=== PATIENT | male | born 1955 | race Caucasian/White ===

== ENCOUNTER 2017-08-17 13:09 | Inpatient (IN) | payer OTHER ==
[~2017-08-17] VITALS: Ht 180.3 cm; Wt 84.1 kg
[2017-08-17 13:56] LABS: ABSOLUTE BASOPHIL COUNT 0 /CUMM (0.0-0.2); ABSOLUTE EOSINOPHIL COUNT 0 /CUMM (0.0-0.7); ABSOLUTE GRANULOCYTE CT 5.9 /CUMM (1.4-6.5); ABSOLUTE LYMPH COUNT 1.2 /CUMM (1.2-3.4); ABSOLUTE MONOCYTE COUNT 0.5 /CUMM (0.10-0.60); BASOPHIL % 0.5 % (0.0-2.0); EOSINOPHIL % 0.1 % (0-5); GRANULOCYTE % 77.4 % (42.2-75.2); HEMATOCRIT 42.3 % (42-52); MEAN CORPUSCULAR HGB 34.5 PG (27.0-31.0); MEAN CORPUSCULAR HGB CONC 36.3 G/DL (33.0-37.0); MEAN CORPUSCULAR VOLUME 95.2 FL (80.0-94.0); MEAN PLATELET VOLUME 6.6 FL (7.4-10.4); PLATELET COUNT 312 /CUMM (130-400); RBC DISTRIBUTION WIDTH 15.7 % (11.5-14.5); RED BLOOD CELL CT 4.44 /CUMM (4.70-6.10); WHITE BLOOD CELL COUNT 7.7 /CUMM (4.8-10.8)
--- NOTE | 2017-08-17 13:56 | ED GENERAL ADULT ---
History of Present Illness General Chief Complaint: ETOH/Drug Related Complaint Stated Complaint: ETOH, NEEDS DETOX FOR [facility] ADMISSION Source: patient Exam Limitations: no limitations Vital Signs & Intake/Output Vital Signs & Intake/Output Vital Signs Date Time Temp Pulse Resp B/P B/P Pulse O2 O2 Flow FiO2 Mean Ox Delivery Rate 08/18 2307 98.3 114 21 160/80 95 Room Air 08/17 2212 98.8 105 18 157/83 99 Room Air 08/17 2009 98.8 122 20 153/78 08/17 2008 98.8 122 20 153/78 96 Room Air 08/17 1632 99.1 108 18 137/72 96 Room Air 08/17 1318 99.0 130 22 111/77 97 Allergies Coded Allergies: No Known Allergies (08/17/17) Reconcile Medications Atorvastatin Calcium (Lipitor) (Unknown Strength) TABLET (Unknown Dose) PO DAILY CHOLESTEROL (Reported) Escitalopram Oxalate (Lexapro) 10 MG TABLET 1 TAB PO DAILY MENTAL HEALTH ( Reported) Triage Note: PER PT LAST DRINK YESTERDAY WENT TO [facility] AND BAL WAS 2.4 SENT HERE WITH FRIEND FOR DETOX PER PT NO SZ HX BUT FRIEND SAID PT HAD A SZ YESTERDAY Triage Nurses Notes Reviewed? yes Onset: Abrupt Duration: week(s): (6 MONTHS) Timing: single episode today Injury Environment: home Severity: moderate, severe No Modifying Factors: none HPI: 61-year-old male past medical history of hyperlipidemia and alcohol dependence presents for evaluation requesting alcohol detox/clearance for [facility]. Patient states that he has been drinking heavily for years however of the past 6 months that has become daily. He states he drinks 3 or 4 "cups" of vodka daily. He is cups contain about 4 shots. He denies any drug use. He is not suicidal or homicidal. No history of alcohol withdrawal seizures however according to the patient's friend he had a seizure yesterday. Patient denies this. He denies any visual or auditory hallucinations. His last drink was around 12:00 today. He drank "a large cup of vodka". He states that he went to [facility] but was referred here because he was still intoxicated. He does report currently feeling nauseous and has a headache. (Kendrick Art) Past History Travel History Traveled to [place] past 21 day No Medical History Any Pertinent Medical History? see below for history Neurological: NONE EENT: NONE Cardiovascular: CHOL Respiratory: NONE Gastrointestinal: NONE Hepatic: NONE Renal: NONE Musculoskeletal: NONE Psychiatric: NONE Endocrine: NONE Surgical History Surgical History: non-contributory Psychosocial History What is your primary language Palauan Tobacco Use: Never used ETOH Use: heavy use Family History Hx Contributory? No (Kendrick Art) Review of Systems Review of Systems Constitutional: Reports: no symptoms. EENTM: Reports: no symptoms. Respiratory: Reports: no symptoms. Cardiovascular: Reports: no symptoms. GI: Reports: nausea. Genitourinary: Reports: no symptoms. Musculoskeletal: Reports: no symptoms. Skin: Reports: no symptoms. Neurological/Psychological: Reports: headache. Hematologic/Endocrine: Reports: no symptoms. Immunologic/Allergic: Reports: no symptoms. All Other Systems: Reviewed and Negative (Kendrick Art) Physical Exam Physical Exam General Appearance: well developed/nourished, no apparent distress, alert, awake Head: atraumatic, normal appearance Eyes: Bilateral: normal appearance, PERRL, EOMI. Ears, Nose, Throat: normal pharynx, normal ENT inspection, hearing grossly normal Neck: normal inspection, supple, full range of motion Respiratory: normal breath sounds, chest non-tender, no respiratory distress, lungs clear Cardiovascular: regular rate/rhythm, normal peripheral pulses Peripheral Pulses: 2+ radial (R), 2+ radial (L) Gastrointestinal: normal bowel sounds, soft, non-tender, no organomegaly Back: normal inspection, normal range of motion, no vertebral tenderness Extremities: normal inspection, normal range of motion, no edema Neurologic/Psych: no motor/sensory deficits, awake, alert, oriented x 3, normal gait Skin: intact, normal color, warm/dry Lymphatic: no anterior cervical tank Core Measures ACS in differential dx? No CVA/TIA Diagnosis: No Sepsis Present: No Sepsis Focused Exam Completed? No (Kendrick Art) Progress Differential Diagnoses I considered the following diagnoses in my evaluation of the patient: [Alcohol intoxication, alcohol withdrawal, electrolyte ABN] Plan of Care: Orders Procedure Date/time Status Regular Diet 08/18 B Active Pathway - chart 08/17 2212 Active House Staff 08/17 2212 Active Patient Data 08/17 2212 Active Code Status 08/17 2212 Active ED Holding Orders 08/17 2150 Active Admit to inpatient 04/30 2151 Active Vital Signs 04/30 2151 Active Code Status 08/17 2151 Complete CIWA 08/17 1752 Active Intake & Output 08/17 1411 Active Add-on Test (ER Only) 08/17 1355 Active TROPONIN LEVEL 08/17 1326 Complete MAGNESIUM 08/17 1326 Complete URINE DRUG SCREEN FOR ER ONLY 08/17 1319 Complete ETHANOL 08/17 1319 Complete COMPREHENSIVE METABOLIC PANEL 08/17 1319 Complete CBC WITHOUT DIFFERENTIAL 08/17 1319 Complete EKG 08/17 1319 Active VTE Mechanical Prophylaxis 08/17 UNK Active Current Medications Sig/Breana Start time Last Medication Dose Stop Time Status Admin Atorvastatin Calcium 40 MG 1700 08/18 1700 AC (Lipitor) Enoxaparin Sodium 40 MG DAILY 08/18 0900 AC (Lovenox) Escitalopram Oxalate 10 MG DAILY 08/18 09 AC (Lexapro) Cyanocobalamin/ 1 BAG ONCE ONE 08/17 2230 AC Thiamine/Pyridoxine 08/18 0629 (Vitamin in I.V.) Sodium Chloride 1,000 ML (Normal Saline 0.9%) Acetaminophen 325 MG Q6 PRN 08/17 2215 AC (Tylenol) Laboratory Tests 08/17/17 1502: Anion Gap 19 H, Estimated GFR > 60, BUN/Creatinine Ratio 27.0 H, Glucose 226 H, Calcium 8.7, Magnesium 1.9, Total Bilirubin 0.4, AST 43, ALT 38, Alkaline Phosphatase 62, Troponin I < 0.01, Total Protein 6.5, Albumin 4.1, Globulin 2.4, Albumin/Globulin Ratio 1.7, Serum Alcohol 227.0 08/17/17 1433: Urine Opiates Screen < 100, Methadone Screen 46, Barbiturate Screen < 60, Ur Phencyclidine Scrn < 6.00, Amphetamines Screen < 100, U Benzodiazepines Scrn 357 H, Urine Cocaine Screen < 50, Urine Cannabis Screen < 5.00 08/17/17 1326: CBC w Diff NO MAN DIFF REQ, RBC 4.44 L, MCV 95.2 H, MCH 34.5 H, MCHC 36.3, RDW 15.7 H, MPV 6.6 L, Gran % 77.4 H, Lymphocytes % 15.6 L, Monocytes % 6.4, Eosinophils % 0.1, Basophils % 0.5, Absolute Granulocytes 5.9, Absolute Lymphocytes 1.2, Absolute Monocytes 0.5, Absolute Eosinophils 0, Absolute Basophils 0 Patient seen and evaluated. He is here requesting evaluation of alcohol detox. Patient denies history of ocular withdrawal seizures however his friend reports he may have had a seizure yesterday. He is not suicidal or homicidal. We'll check basic labs and CIWA exams. He is tachycardic to the 120s be given a liter normal saline. EKG sinus tach. Blood work shows an alcohol level of greater than 200. Patient to be monitorED. Patient shows a CIWA of 13 on reevaluation after multiple hours in the ER. 2 mg of Ativan IV and 2 mg oral Ativan orderED. Also an additional liter of normal saline ordered. Repeat CIWA is now 16 despite Ativan. Another 2 and 2 ordered. A banana bag ordered. Patient will require admission to the hospital for treatment of alcohol withdrawal. CASE DISCUSSED WITH DR JAMES HE AGREES. Initial ED EKG: SINUS TACHYCARDIA RATE 113, LEFT ATRIAL ABNORMALITY, NONSPECIFIC t-WAVE ABNORMALITIES DIFFUSELY (Kendrick Art) Departure Departure Disposition: STILL A PATIENT Condition: Stable Clinical Impression Primary Impression: Alcohol withdrawal Qualifiers: Complication of substance-induced condition: uncomplicated Qualified Code: F10.230 - Alcohol dependence with withdrawal, uncomplicated Departure Forms: Customer Survey General Discharge Information Admission Note Spoke With: Gil Galarza MDanne marie Documentation of Exam: Documentation of any treatments & extenuating circumstances including Concerns Regarding Discharge (functional status, medication knowledge or non-compliance, living conditions, etc.) that warrant an admission rather than observation: [ CIWA, SERIAL LABS, IV ATIVAN, MONIOTRING OF VITAL SIGNS, CASE MANAGEMENT, ] (Kendrick Art) PA/ENGINEER CHIEF Co-Sign Statement Statement: ED Attending supervision documentation- [X] I saw and evaluated the patient. I have also reviewed all the pertinent lab results and diagnostic results. I agree with the findings and the plan of care as documented in the PA's/ENGINEER CHIEF's documentation. [X] I have reviewed the ED Record and agree with the PA's/ENGINEER CHIEF's documentation. [] Additions or exceptions (if any) to the PAs/ENGINEER CHIEF's note and plan are summarized below: [Patient to score is escalating. Patient is now at high risk to have an alcohol withdrawal seizure. Patient will require clinical admission for benzos. His CIWA score.] (Yecenia MOSLEY,Jasson Simon) Critical Care Note Critical Care Note Critical Care Time: non-applicable (David SMILEY,Kendrick)
[2017-08-17] MEDS ORDERED: LEXAPRO10 M1 PO (14:43)
[2017-08-17] MEDS ORDERED: LIPITOR10 M1 PO (14:43)
[2017-08-17 20:10] VITALS: BP 153/78
--- NOTE | 2017-08-17 22:07 | History & Physical ---
Susan Leung 08/17/17 9006: General Information and HPI MD Statement: I have seen and personally examined ANJANA KAUFFMAN and documented this H&P. The patient is a 61 year old M who presented with a patient stated chief complaint of [Alcohol Detox]. Source of Information: patient, old records Exam Limitations: no limitations History of Present Illness: Mr. Kauffman is a 61-yo M w/ PMH of HLD, childhood asthma, hypertension, possible psych issues, active alcohol user of 3-4 cups (4oz cup) alcohol daily prior to this admission, presented to the ER for alcohol detox. Patient has been a chronic alcohol use of around 1 glasses of wine per dinner in the past, without recorded seizure events in the past. She underwent alcohol detox program at [facility] about 2-3 months ago, uncomplicated, and was then sent to rehab for 2-3 weeks. Prior to this admission, patient started drinking for 4 days with 3-4 cups (4 ounces cup) of vodka/alcohol daily without a particular trigger. Patient stated the last ring was on 08/16 around noon time, however his friend claimed that patient had a seizure, unknown of whether before or after the last week. Patient did not have any memory of the seizure event. Patient was trying to sign up for [facility] alcohol detox program today, however was told that he should present to the ER for alcohol detox program. During our clinical interaction, patient endorsed some dull pain at the chest, some epigastric discomfort, and some right lower quadrant abdominal discomfort as well. However patient denied fever/night sweat/weight change/cough/SOB/ Palpitation/exercise intolerance/bowel movement/urinary abnormality, or other skin/musculoskeletal/neurological disorders/mood change/insomnia/dietary/ appetite change. Patient cannot remember all his home medications, however admitted taking medications that we brought up for home medication list, including Lexapro, Lipitor, clonazepam, hypertensive medications (possibly amlodipine), and inhalers. Patient denies any suicidal/homicidal ideations. Patient does not want to see a psychiatrist. -Smoking: Never -Alcohol: as above -Rec Drugs: denied Allergies/Medications Allergies: Coded Allergies: No Known Allergies (08/17/17) Home Med list Atorvastatin Calcium (Lipitor) (Unknown Strength) TABLET (Unknown Dose) PO DAILY CHOLESTEROL (Reported) Escitalopram Oxalate (Lexapro) 10 MG TABLET 1 TAB PO DAILY MENTAL HEALTH ( Reported) Past History Travel History Traveled to [place] past 21 day No Medical History Neurological: NONE EENT: NONE Cardiovascular: hypertension, hyperlipidemia Respiratory: asthma Gastrointestinal: NONE Hepatic: NONE Renal: NONE Musculoskeletal: NONE Psychiatric: alcohol dependence, depression Endocrine: NONE Surgical History Surgical History: non-contributory, Shoulder/knee repair surgeries in the past Past Family/Social History Psychosocial History ETOH Use: heavy use Review of Systems Review of Systems Constitutional: Reports: see HPI. Exam & Diagnostic Data Last 24 Hrs of Vital Signs/I&O Vital Signs Date Time Temp Pulse Resp B/P B/P Pulse O2 O2 Flow FiO2 Mean Ox Delivery Rate 08/17 2009 98.8 122 20 153/78 08/17 2008 98.8 122 20 153/78 96 Room Air 08/17 1632 99.1 108 18 137/72 96 Room Air 08/17 1318 99.0 130 22 111/77 97 Intake & Output 08/17 1600 08/17 0800 08/17 0000 Intake Total 0 Output Total Balance 0 Intake, Oral 0 Physical Exam General Appearance Alert, Oriented X3, Cooperative, No Acute Distress Skin No Rashes, No Breakdown, No Significant Lesion Skin Temp/Moisture Exam: Warm/Dry Sepsis Skin Exam (color): Normal for Ethnicity HEENT Atraumatic, PERRLA Neck Supple, No JVD Cardiovascular Regular Rate Lungs Clear to Auscultation, Normal Air Movement Abdomen Normal Bowel Sounds, Soft, mild dul pain at epigastric/RLQ ab. Patient claimed the pain was from "inside". No rebound tenderness Neurological Normal Speech, BUE tremors on raising and hold hands Extremities No Edema, Normal Pulses Last 24 Hrs of Labs/Rajat: Laboratory Tests 08/17/17 1502: Anion Gap 19 H, Estimated GFR > 60, BUN/Creatinine Ratio 27.0 H, Glucose 226 H, Calcium 8.7, Magnesium 1.9, Total Bilirubin 0.4, AST 43, ALT 38, Alkaline Phosphatase 62, Troponin I < 0.01, Total Protein 6.5, Albumin 4.1, Globulin 2.4, Albumin/Globulin Ratio 1.7, Serum Alcohol 227.0 08/17/17 1433: Urine Opiates Screen < 100, Methadone Screen 46, Barbiturate Screen < 60, Ur Phencyclidine Scrn < 6.00, Amphetamines Screen < 100, U Benzodiazepines Scrn 357 H, Urine Cocaine Screen < 50, Urine Cannabis Screen < 5.00 08/17/17 1326: CBC w Diff NO MAN DIFF REQ, RBC 4.44 L, MCV 95.2 H, MCH 34.5 H, MCHC 36.3, RDW 15.7 H, MPV 6.6 L, Gran % 77.4 H, Lymphocytes % 15.6 L, Monocytes % 6.4, Eosinophils % 0.1, Basophils % 0.5, Absolute Granulocytes 5.9, Absolute Lymphocytes 1.2, Absolute Monocytes 0.5, Absolute Eosinophils 0, Absolute Basophils 0 Assessment/Plan Assessment: Problem list & Assessment: Patient presented with alcohol detox clinical picture, with no deficit on his mental status. Patient may had a questionable alcohol seizures, however based on his serum alcohol level 227, is very unlikely the patient would have withdrawal seizure while being positive also alcohol. However continuous monitoring is necessary. Chest/epigastric and right lower quadrant abdominal discomfort. Patient's complaint, however, only dull pain around 3-4 out of 10 the patient without a remarkable physical examination revealed any acute process. Past medical history been confirmed however unclear of patient's whether he was taking all medications he had at home. #Alcohol detox #questionable hx of alcohol withdrawal seizures #Chest/Epigastric & RLQ discomfort. #Euvolumic Hyponatremia #PMH of hypertension, hyperlipidemia, depression/anxiety, childhood asthma, Hospital Course: - Admit to general medicine floor -Ativan per [facility] protocol. Patient received total of 8 mg of Ativan during ER prior to inpatient admission. -Ativan 2 mg q6 PO. -Multivitamin/B12/Folic/Thiamine pain persists, transfer to telemetry -Ultrasound of abdomen to rule out any acute process. DVT prophylaxis Lovenox + ALPS Regular Diet Full Code As Ranked By This Provider Problem List: 1. Alcohol withdrawal Qualifiers Complication of substance-induced condition: uncomplicated Qualified Code: F10.230 - Alcohol dependence with withdrawal, uncomplicated Core Measures/Misc (01/04) Acute Coronary Syndrome ACS Diagnosis: No Congestive Heart Failure Congestive Heart Failure Diagnosis No Cerebrovascular Accident CVA/TIA Diagnosis: No VTE (View Protocol) VTE Risk Factors Age>40 No Mechanical VTE Prophylaxis d/t N/A MechProphylax Ordered No VTE Pharm Prophylaxis d/t NA PharmProphylax ordered Sepsis (View protocol) Sepsis Present: No Hdaval,Reetup 08/17/17 2213: Resident Review Statement Resident Statement: examined this patient, discussed with advisory internship Other Findings: Patient is a 61-year-old male with past medical history of multiple psychiatric disorders, hyperlipidemia, asthma in childhood, alcohol abuser(last detox 3-4 months ago at [facility]), no history of alcohol withdrawal seizures presents to the ED requesting alcohol detox. Patient reports that he has been drinking consistently for the past 4 days. He has been drinking 3-4 cups(4 ounces). Prior to that he was sober post his detox at [facility] about 4 months ago. After that the patient was discharged to rehabilitation where he did not drink. He hints to financial crisis, divorce being trigger. His last drink was yesterday around noon. Patient's friend also mentioned him having a seizure episode yesterday however the patient cannot recall the exact details of the episode. He wanted to sign up for a [facility] today for alcohol detox, however was sent to ED. He denies any nausea, vomiting, fevers, chills, diarrhea or constipation. Admits to nonspecific chest discomfort on the left side without radiation, some right lower quadrant pain but no other symptoms. Patient also has multiple psych issues and sees a psychiatrist. He denies to see a psychiatrist while in the hospital. He is on Lexapro and Klonopin. Denies SI/HI Vital sitter at admission was significant was a tachycardia of 1:30, and respiration of 22. Labs significant for sodium 128,(no baseline), anion gap 19, glucose 226, troponins 0.01, U tox positive for benzodiazepines EKG significant for sinus tachycardia, T-wave inversion in V4 to V6, Physical exam: General: Awake, alert, oriented times place and person HEENT: PERRLA, EOMI Chest: Clear breath sounds CVS: S1 and S2 heard, no murmurs Abdomen: Distended, hard, right lower quadrant tenderness, bowel sounds positive Extremities: No edema, pulses intact Neurological: Mild tremor, no neurological deficits Assessment Alcohol detox ? Alcohol withdrawal seizures Nonspecific chest pain, T-wave inversions V4 to V6 Right lower quadrant discomfort Pseudohyponatremia likely secondary to hyperglycemia( corrected Na 131) Hyperglycemia Hypertension, hyperlipidemia Depression/anxiety Asthma Plan * Admit to [facility] * Vitals per protocol * Seizure precautions * Aspiration precautions * CIWA protocol * Scheduled Ativan 2 mg every 6, Ativan per CIWA * Gentle hydration with IV normal saline * Continue thiamine, folate, multivitamins * Check BeP in a.m. monitor sodium. Hyponatremia likely due to hyperglycemia, corrected 131 * We'll check 1 more set of troponin and EKG, previous troponin negative. If patient develops chest pain, we will consider transferring to telemetry. * Abdominal ultrasound to rule out acute pathology * Will check Amylase and Lipase to r/o pancreatitis * TID Accuchecks, Novolog SSC, check HbA1c * Continue Lexapro and all other home medications * Patient denies to see a psychiatrist at this time * aircraft worker consult * DVT prophylaxis subcutaneous Lovenox * Full code Geovanni MOSLEY, [facility] 08/18/17 0218: Attending MD Review Statement Attending Statement Attending MD Statement: examined this patient, discuss w/resident/PA/PICK UP AND DELIVERY DRIVER, agreed w/resident/PA/PICK UP AND DELIVERY DRIVER, reviewed images, amended to note Attending Assessment/Plan: 61 yo M smoker with h/o alcohol dependence, HTN, ?anxiety/ depression, presented to the ER today for alcohol detox and clearance for [facility]. He has been drinking heavily since he was a teenager. His last detox was at [facility] 4 months ago followed by rehabilitation for 10 days, and he claims to be sober since. He reports binge drinking only for the past 4 days. However, according to ER notes, he had reported that he has been drinking daily for the past 6 months. Denies SI or HI. No IV drug use. He denies alcohol withdrawal seizures however patient's friend reported to ER physician that patient had a seizure yesterday. He c/o left sided sharp chest discomfort (under the left breast) and right sided abdominal pain. Reports occasional heartburn. Denies nausea, vomiting, hematemesis or melena. Vitals stable except for tachycardia. Exam as above. Labs: Na 128, AG 19, BUN 27 , glucose 226, troponin neg. Urine tox positive for benzos. Alcohol 227. EKG: sinus tachycardia with T-wave flattening and inversions in V2-6 and inferior leads (no old EKG). Assessment and plan: 1. Alcohol withdrawal, ?withdrawal seizures 2. EKG abnormalities with atypical chest discomfort 3. Pseudohyponatremia (corrected to glucose 131) 4. Essential hypertension 5. Anxiety, depression 6. Smoker 7. Hyperglycemia - Admit to general medicine - Fall and seizure precautions - CIWA protocol - IV ativan per CIWA and scheduled ativan - Banana bag, then thiamine, folic acid and mvi - Serial EKG and troponin - Right upper quadrant pain, with normal LFTs will check lipase, amylase and obtain RUQ ultrasound - Social work consult - Continue lexparo, patient wishes to follow up with outpatient psychiatrist - Resume amlodipine, hold edarbyclor for now - Smoking cessation counseling, nicotine patch - Accucheks, check HbA1c. Add novolog SS if sugars >200. DVT ppx lovenox. Full code.
--- NOTE | 2017-08-17 22:12 | Admission Certification ---
Admission Certification Certification Statement - As attending physician, I certify that at the time of - admission, based on clinical presentation, severity of - symptoms, need for further diagnostic testing and - therapeutic interventions, and risk of adverse outcomes - without in-hospital treatment, in my clinical assessment, - this patient requires an acute hospital stay for a minimum - of two nights or longer. I have also considered psychsocial - factors such as support system, advanced age, financial - issues, cognitive issues, and failed out-patient treatments, - past re-admission history, safety of patient, and lack of - compliance as applicable. Specific rationale supporting this admission is: Alcohol withdrawal
[2017-08-17 23:08] VITALS: BP 160/80
[2017-08-18] VITALS (10 sets, daily range): BP systolic 122–154; BP diastolic 70–98
--- NOTE | 2017-08-18 07:46 | PN- Housestaff ---
See Addendum Subjective Follow-up For: EtOH Subjective: No overnight events. Patient presents requesting detox from alcohol. Patient says he has been drinking since a teenager but is only become a problem in the past year. He was 4 years ago and he thinks this may have something to do with it. He says he does not remember much but thinks that he was drinking about a gallon but may be less of vodka a day. He also mentions that he thinks he had a seizure 2 days ago but is not sure. He has never had withdrawal seizures in the past. He has never been hospitalized for alcohol withdrawal either. This morning, he endorses nausea, headache, tremulousness, and anxiety. He has no chest pain or shortness of breath. He has no abdominal pain. Review of Systems Constitutional: Reports: see HPI. EENTM: Reports: no symptoms. Cardiovascular: Reports: no symptoms. Respiratory: Reports: no symptoms. Gastrointestinal: Reports: see HPI. Genitourinary: Reports: no symptoms. Musculoskeletal: Reports: no symptoms. Skin: Reports: no symptoms. Neurological/Psychological: Reports: see HPI. Hematologic/Endocrine: Reports: no symptoms. Immunologic/Allergic: Reports: no symptoms. Objective Last 24 Hrs of Vital Signs/I&O Vital Signs Date Time Temp Pulse Resp B/P B/P Pulse O2 O2 Flow FiO2 Mean Ox Delivery Rate 08/18 0653 98.7 85 18 152/84 95 Room Air 08/18 0321 98.5 98 20 152/82 97 Room Air 08/18 0118 98.6 100 20 154/78 94 Room Air 08/17 2308 98.3 114 21 160/80 95 Room Air 08/17 2212 98.8 105 18 157/83 99 Room Air 08/17 2009 98.8 122 20 153/78 08/17 2008 98.8 122 20 153/78 96 Room Air 08/17 1632 99.1 108 18 137/72 96 Room Air 08/17 1318 99.0 130 22 111/77 97 Intake & Output 08/18 0800 08/18 0000 08/17 1600 Intake Total 0 Output Total 1150 Balance -1150 0 Intake, Oral 0 Output, Urine 1150 Patient 81.647 kg Weight Weight Bed scale Measurement Method Physical Exam General Appearance: Alert, Oriented X3, Cooperative, No Acute Distress Cardiovascular: Regular Rate, Normal S1, Normal S2 Lungs: Clear to Auscultation Abdomen: Normal Bowel Sounds, Soft, No Tenderness Extremities: No Edema, Normal Pulses, No Tenderness/Swelling Current Medications: Current Medications Sig/Breana Start time Last Medication Dose Route Stop Time Status Admin Acetaminophen 325 MG Q6 PRN 08/17 2215 AC PO Acetaminophen 0 .STK-MED ONE 08/17 1812 DC PO Acetaminophen 975 MG ONCE ONE 08/17 1800 DC 08/17 PO 08/17 1801 1806 Amlodipine Besylate 5 MG DAILY 08/18 09 AC PO Atorvastatin Calcium 40 MG 1700 08/18 1700 CAN PO Cyanocobalamin/ 1 BAG DAILY 08/18 09 AC Thiamine/Pyridoxine IV 08/18 1659 Dextrose/Water 1,000 ML Cyanocobalamin/ 1 BAG ONCE ONE 08/17 2230 DC 08/17 Thiamine/Pyridoxine IV 08/18 0629 2314 Sodium Chloride 1,000 ML Enoxaparin Sodium 40 MG DAILY 08/18 09 AC SC Escitalopram Oxalate 10 MG DAILY 08/18 09 AC PO Folic Acid 1 MG DAILY 08/18 0900 AC PO Insulin Aspart 0 TIDAC 08/18 0800 AC SC Lorazepam 1 MG Q1 PRN 08/18 0315 AC IV Lorazepam 2 MG Q6 08/17 2359 AC 08/18 PO 0614 Lorazepam 1 MG Q1 NEEDED PRN 08/17 2345 DC IV Lorazepam 0 .STK-MED ONE 08/17 221 DC PO Lorazepam 0 .STK-MED ONE 08/17 221 DC .ROUTE Lorazepam 2 MG ONE ONE 08/17 2145 DC 08/17 IV 08/17 2145 221 Lorazepam 2 MG ONCE ONE 08/17 2145 DC 08/17 PO 08/17 214 2211 Lorazepam 0 .STK-MED ONE 08/17 2022 DC PO Lorazepam 0 .STK-MED ONE 08/17 2022 DC .ROUTE Lorazepam 2 MG ONE ONE 08/17 2014 DC 08/17 IV 08/17 Lorazepam 2 MG ONCE ONE 08/17 2014 DC 08/17 PO 08/17 Multivitamins 1 TAB DAILY 08/18 09 AC PO Ondansetron HCl 0 .STK-MED ONE 08/17 1752 DC .ROUTE Ondansetron HCl 4 MG ONCE ONE 08/17 1745 DC 08/17 IV 08/17 1746 1746 Sodium Chloride 1,000 ML Q13H 08/17 2345 AC 08/18 IV 08/18 1244 0005 Sodium Chloride 1,000 ML BOLUS ONE 08/17 2014 DC 08/17 IV 08/17 Sodium Chloride 1,000 ML BOLUS ONE 08/17 1400 DC 08/17 IV 08/17 1459 1420 Thiamine HCl 100 MG DAILY 08/18 0900 AC PO Trimethobenzamide HCl 200 MG 4 TIMES/DAY PRN 08/17 2345 AC IM Last 24 Hrs of Lab/Rajat Results Last 24 Hrs of Labs/Mics: Laboratory Tests 08/18/17 0040: Troponin I < 0.01 08/17/17 1502: Anion Gap 19 H, Estimated GFR > 60, BUN/Creatinine Ratio 27.0 H, Glucose 226 H, Hemoglobin A1c Pending, Serum Osmolality 336 H, Calcium 8.7, Magnesium 1.9, Total Bilirubin 0.4, AST 43, ALT 38, Alkaline Phosphatase 62, Troponin I < 0.01, Total Protein 6.5, Albumin 4.1, Globulin 2.4, Albumin/Globulin Ratio 1.7, Amylase 62, Lipase 122, Serum Alcohol 227.0 08/17/17 1433: Urine Opiates Screen < 100, Methadone Screen 46, Barbiturate Screen < 60, Ur Phencyclidine Scrn < 6.00, Amphetamines Screen < 100, U Benzodiazepines Scrn 357 H, Urine Cocaine Screen < 50, Urine Cannabis Screen < 5.00, Urine Osmolality 540 08/17/17 1326: CBC w Diff NO MAN DIFF REQ, RBC 4.44 L, MCV 95.2 H, MCH 34.5 H, MCHC 36.3, RDW 15.7 H, MPV 6.6 L, Gran % 77.4 H, Lymphocytes % 15.6 L, Monocytes % 6.4, Eosinophils % 0.1, Basophils % 0.5, Absolute Granulocytes 5.9, Absolute Lymphocytes 1.2, Absolute Monocytes 0.5, Absolute Eosinophils 0, Absolute Basophils 0 Assessment/Plan Assessment: Mr. Kauffman is a 61-year-old male with past medical history of depression, anxiety, hyperlipidemia, asthma in childhood, alcohol abuse (last detox 3-4 months ago at [facility]), and no history of alcohol withdrawal seizures who presented requesting alcohol detox. Problem List: 1. Alcohol detoxification 2. Pseudohyponatremia #EtOH detox: Patient presented requesting detox. He has never been hospitalized previously for detoxification. He has also never had a withdrawal seizure. His CIWA score overnight ranged from 0-16. His LFTs are normal and he no longer has any abdominal pain. -Lorazepam 2 mg every 6 hours -Lorazepam 1 mg every 1 hour as needed CIWA protocol -Seizure precautions -Social work consult -Alcoholic vitamins -Follow-up abdominal ultrasound #Pseudohyponatremia: Patient presented with sodium 128, corrected sodium 131. -Continue to monitor #Chronic medical problems: -Continue other home medications DVT prophylaxis with enoxaparin Consistent carbohydrate to diet Full code Problem List: 1. Alcohol withdrawal Pain Ratin Pain Location: no Pain Goal: Remain pain free Pain Plan: see a/p Tomorrow's Labs & Rationales: bep
--- NOTE | 2017-08-18 08:44 | ULTRASOUND REPORT ---
EXAMINATION: US ABDOMEN COMPLETE CLINICAL INFORMATION: 61-year-old male patient with upper abdominal pain for 2 days. COMPARISON: None TECHNIQUE: Real-time imaging of the abdominal viscera. FINDINGS: PANCREAS: Pancreatic gland is visualized and is not overly enlarged. However, the internal echotexture is heterogeneous implying some form of subacute or chronic disease. ABDOMINAL AORTA: Normal. INFERIOR VENA CAVA: Visualized portions are normal. LIVER: The entire liver is difficult to include on the images submitted due to its high position in the right upper quadrant. The liver demonstrates normal size, contour and echogenicity. No focal lesion or intrahepatic biliary duct dilatation. GALLBLADDER: Normal. The gallbladder is physiologically distended without evidence of stones, sludge, polyps, wall thickening or pericholecystic fluid. COMMON BILE DUCT: There is mild dilatation of the common bile duct varying in size from 0.9 cm with gradual tapering to 0.7 cm in the head of the pancreas. No visualized stones. No obvious mass lesion. RIGHT KIDNEY: Normal. No hydronephrosis. No renal calculi or focal parenchymal lesions. The kidney measures 11.9 cm in maximum dimension. LEFT KIDNEY: Normal. No hydronephrosis. No renal calculi or focal parenchymal lesions. The kidney measures 11.7 cm in maximum dimension. SPLEEN: Normal. The spleen measures 13.6 cm in maximum dimension. FREE FLUID: None. IMPRESSION: 1. Pancreatic gland is heterogeneous implying some form of chronic disease. 2. Mild dilatation of the common bile duct which tapers gradually through the head of the pancreas. 3. No sign of gallbladder disease.
[2017-08-19] VITALS (10 sets, daily range): BP systolic 130–142; BP diastolic 74–95
--- NOTE | 2017-08-19 07:33 | PN- Housestaff ---
See Addendum Subjective Follow-up For: EtOH Subjective: No overnight events. Patient slept well and feels like he is improving. He notes that he did not know how bad he was is glad that he came in. He is worried about the cost of going to rehabilitation and says that he has had many large bills recently. He does not know if he could afford it. He does go to AA meetings that he enjoys and thinks that they help. He did speak to our social work case manager, Greta, yesterday. He denies any headache, nausea, vomiting, chest pain, shortness of breath. His last bowel movement was yesterday. Review of Systems Constitutional: Reports: no symptoms. EENTM: Reports: no symptoms. Cardiovascular: Reports: no symptoms. Respiratory: Reports: no symptoms. Gastrointestinal: Reports: no symptoms. Genitourinary: Reports: no symptoms. Musculoskeletal: Reports: no symptoms. Skin: Reports: no symptoms. Neurological/Psychological: Reports: no symptoms. Hematologic/Endocrine: Reports: no symptoms. Immunologic/Allergic: Reports: no symptoms. Objective Last 24 Hrs of Vital Signs/I&O Vital Signs Date Time Temp Pulse Resp B/P B/P Pulse O2 O2 Flow FiO2 Mean Ox Delivery Rate 08/19 0620 97.8 86 20 142/86 08/19 0600 97.8 86 20 142/86 96 Room Air 08/19 0200 98.1 72 20 138/74 97 Room Air 08/19 0000 96 Room Air 08/18 2232 98.8 83 20 128/70 96 08/18 1800 98.2 89 18 122/80 97 Room Air 08/18 1434 97.9 122 22 153/98 96 Room Air 08/18 1400 97.9 122 22 153/98 08/18 1159 98.3 109 20 150/82 08/18 1052 98.3 88 18 152/86 96 Room Air 08/18 0901 95 150/90 08/18 0852 98.4 95 20 150/90 97 Room Air Intake & Output 08/19 0800 08/19 0000 08/18 1600 Intake Total 250 1100 Output Total 550 950 Balance -300 150 Intake, IV 10 500 Intake, Oral 240 600 Output, Urine 550 950 Physical Exam General Appearance: Alert, Oriented X3, Cooperative, No Acute Distress Cardiovascular: Regular Rate, Normal S1, Normal S2 Lungs: Clear to Auscultation, Normal Air Movement Abdomen: Normal Bowel Sounds, Soft, No Tenderness Extremities: No Edema, Normal Pulses, No Tenderness/Swelling Current Medications: Current Medications Sig/Breana Start time Last Medication Dose Route Stop Time Status Admin Acetaminophen 325 MG .STK-MED ONE 08/18 09 DC PO 08/18 0901 Acetaminophen 325 MG Q6 PRN 08/17 2215 AC 08/19 PO 0328 Amlodipine Besylate 5 MG DAILY 08/18 09 AC 08/18 PO 0901 Cyanocobalamin/ 1 BAG DAILY 08/18 09 DC Thiamine/Pyridoxine IV 08/18 1659 Dextrose/Water 1,000 ML Enoxaparin Sodium 40 MG DAILY 08/18 899 AC 08/18 SC 0902 Escitalopram Oxalate 10 MG DAILY 08/18 09 AC 08/18 PO 0849 Folic Acid 1 MG DAILY 08/18 09 AC 08/18 PO 0849 Insulin Aspart 0 TIDAC 08/18 0800 AC 08/18 SC 1207 Lorazepam 1 MG Q6 08/19 1200 AC PO Lorazepam 1.5 MG Q6 08/18 1800 DC 08/19 PO 0614 Lorazepam 1 MG Q1 PRN 08/18 0315 AC 08/18 IV 1455 Lorazepam 2 MG Q6 08/17 2359 DC 08/18 PO 1200 Multivitamins 1 TAB DAILY 08/18 09 AC 08/18 PO 0849 Potassium Chloride 40 MEQ ONCE ONE 08/18 0945 DC 08/18 PO 08/18 0946 1111 Sodium Chloride 1,000 ML Q13H 08/17 2345 DC 08/18 IV 08/18 1244 0005 Thiamine HCl 100 MG DAILY 08/18 09 AC 08/18 PO 0849 Trimethobenzamide HCl 200 MG 4 TIMES/DAY PRN 08/17 2345 AC IM Last 24 Hrs of Lab/Rajat Results Last 24 Hrs of Labs/Mics: Laboratory Tests 08/19/17 0640: Sodium Pending, Potassium Pending, Chloride Pending, Carbon Dioxide Pending, Anion Gap Pending, BUN Pending, Creatinine Pending, BUN/Creatinine Ratio Pending Assessment/Plan Assessment: Mr. Kauffman is a 61-year-old male with past medical history of depression, anxiety, hyperlipidemia, asthma in childhood, alcohol abuse (last detox 3-4 months ago at [facility]), and no history of alcohol withdrawal seizures who presented requesting alcohol detox. Problem List: 1. Alcohol detoxification 2. Pseudohyponatremia #EtOH detox: Patient presented requesting detox. He has never been hospitalized previously for detoxification. He has also never had a withdrawal seizure. His CIWA score overnight ranged from 0-10. His LFTs are normal and he no longer has any abdominal pain. Abdominal ultrasound was normal. -Lorazepam 1 mg every 6 hours -Lorazepam 1 mg every 1 hour as needed CIWA protocol -Seizure precautions -Social work consult -Alcoholic vitamins #Pseudohyponatremia: Patient presented with sodium 128, corrected to 131. -Continue to monitor #Chronic medical problems: -Continue other home medications DVT prophylaxis with enoxaparin Regular diet Full code Problem List: 1. Alcohol withdrawal Pain Ratin Pain Location: npo Pain Goal: Remain pain free Pain Plan: see a/p Tomorrow's Labs & Rationales: no
--- NOTE | 2017-08-19 18:30 | Cons- Psychiatry ---
Psychiatric Consult Date of Consult: 08/19/17 Reason for Consult: "Depression, on escitalopram, hyponatremia" History of Present Illness: This is a 17-year-old, , domiciled, male, presenting to the ED on 08/17/2017 at 1317, after being sent here by [facility], due to BAL of 2.4. His chief complaint is requesting alcohol detox. Per the H&P, the patient did not want to see psychiatry. Urine toxicology is positive for benzodiazepines. Serum alcohol 227, 08/17/2017 at 1502. The patient is noted to be hyponatremic on presentation, 128. Liver enzymes are within normal limits, along with pancreatic enzymes. TSH 2.050/FT4 1.38. Cortisol a.m. sample 11.2. Today, 08/19/2017, his serum sodium remains low at 129, his potassium is low at 3.4. Allergies: Coded Allergies: No Known Allergies (08/17/17) Current Medications: Current Medications Sig/Breana Start time Last Medication Dose Route Stop Time Status Admin Acetaminophen 1,000 MG Q8P PRN 08/19 1445 AC 08/19 PO 1451 Acetaminophen 325 MG .STK-MED ONE 08/19 0326 DC PO 08/19 0327 Acetaminophen 325 MG Q6 PRN 08/17 2215 DC 08/19 PO 0328 Amlodipine Besylate 5 MG DAILY 08/18 09 AC 08/19 PO 0819 Enoxaparin Sodium 40 MG DAILY 08/18 0900 AC 08/19 SC 0819 Escitalopram Oxalate 10 MG DAILY 08/18 0900 DC 08/19 PO 0819 Folic Acid 1 MG DAILY 08/18 0900 AC 08/19 PO 0819 Insulin Aspart 0 TIDAC 08/18 0800 AC 08/18 SC 1207 Lorazepam 1 MG Q6 08/19 1200 AC 08/19 PO 1744 Lorazepam 1.5 MG Q6 08/18 1800 DC 08/19 PO 0614 Lorazepam 1 MG Q1 PRN 08/18 0315 AC 08/19 IV 1215 Multivitamins 1 TAB DAILY 08/18 0900 AC 08/19 PO 0819 Patient Medication 1 ED ONE ONE 08/19 1115 DC 08/19 Teaching ED 08/19 1116 1130 Potassium Chloride 40 MEQ ONCE ONE 08/19 1000 DC 08/19 PO 08/19 1001 1130 Thiamine HCl 100 MG DAILY 08/18 0900 AC 08/19 PO 0819 Trimethobenzamide HCl 200 MG 4 TIMES/DAY PRN 08/17 2345 AC 08/19 IM 1128 Addendum Addendum PATIENT: ANJANA SALCEDO PRESENT AGE: 61 PATIENT ACCOUNT NO: [id number] : 56 LOCATION: [facility] ORDERING PHYSICIAN: Ayaan Puentes MD SERVICE DATE: 08/18/17- EXAM TYPE: US - US-COMPLETE ABDOMEN EXAMINATION: US ABDOMEN COMPLETE CLINICAL INFORMATION: 61-year-old male patient with upper abdominal pain for 2 days. COMPARISON: None TECHNIQUE: Real-time imaging of the abdominal viscera. FINDINGS: PANCREAS: Pancreatic gland is visualized and is not overly enlarged. However, the internal echotexture is heterogeneous implying some form of subacute or chronic disease. ABDOMINAL AORTA: Normal. INFERIOR VENA CAVA: Visualized portions are normal. LIVER: The entire liver is difficult to include on the images submitted due to its high position in the right upper quadrant. The liver demonstrates normal size, contour and echogenicity. No focal lesion or intrahepatic biliary duct dilatation. GALLBLADDER: Normal. The gallbladder is physiologically distended without evidence of stones, sludge, polyps, wall thickening or pericholecystic fluid. COMMON BILE DUCT: There is mild dilatation of the common bile duct varying in size from 0.9 cm with gradual tapering to 0.7 cm in the head of the pancreas. No visualized stones. No obvious mass lesion. RIGHT KIDNEY: Normal. No hydronephrosis. No renal calculi or focal parenchymal lesions. The kidney measures 11.9 cm in maximum dimension. LEFT KIDNEY: Normal. No hydronephrosis. No renal calculi or focal parenchymal lesions. The kidney measures 11.7 cm in maximum dimension. SPLEEN: Normal. The spleen measures 13.6 cm in maximum dimension. FREE FLUID: None. IMPRESSION: 1. Pancreatic gland is heterogeneous implying some form of chronic disease. 2. Mild dilatation of the common bile duct which tapers gradually through the head of the pancreas. 3. No sign of gallbladder disease. DICTATED BY: Marbin Rush MD DATE/TIME DICTATED:08/18/17831 BDR:TOREY DATE/TIME TRANSCRIBED:08/18/17831 CONFIDENTIAL, DO NOT COPY WITHOUT APPROPRIATE AUTHORIZATION. Past History Past Medical History Neurological: seizure EENT: NONE Cardiovascular: hypertension, hyperlipidemia Respiratory: asthma Gastrointestinal: NONE Hepatic: NONE Renal: NONE Musculoskeletal: NONE Psychiatric: alcohol dependence, depression Endocrine: NONE Blood Disorders: NONE Cancer(s): NONE SOURCING ASSISTANT/Reproductive: NONE Past Surgical History Surgical History: L Shoulder repair R KNEE ACL L KNEE MENISCUS Psychosocial History Strengths/Capabilities: Motivated for treatment and has supportive girlfriend Physical Limitations (Interventions): None known Psychiatric Treatment History Psych Treatment Psychiatric Treatment Yes Inpatient Treatment No (denies) Outpatient Treatment Yes Location of Treatment Dr. 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 He is alert and lying in his bed. He is oriented to person, place, date, month and year, as well as reason for admission. He denies auditory, visual or tactile hallucinations, and presents no tyron delusions. Denies any feelings of hopelessness, helplessness, worthlessness or guilt feelings. He denies any suicidal or homicidal ideation, denies any history of suicide attempt. He denies any impulsive behavior, including shopping, gambling, promiscuous behavior, and denies any periods when he did not need sleep. Denies any previous psychiatric history. He denies any family psychiatric history. He reports that his father had Parkinson's disease. 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 He has a daughter, Maribel, who was at [facility] in [place], and comes to visit. He states that he been seeing Dr. Prater several years ago during his divorce, and was prescribed citalopram and clonazepam. Lab Results: Laboratory Tests 08/19 08/18 08/18 08/17 08/17 0640 0730 0040 1502 1433 Chemistry Sodium (137 - 145 mmol/L) 129 L 131 L 128 L Potassium (3.5 - 5.1 mmol/L) 3.4 L 3.4 L 3.6 Chloride (98 - 107 mmol/L) 90 L 92 L 84 L Carbon Dioxide (22 - 30 mmol/L) 29 29 25 Anion Gap (5 - 16) 10 10 19 H BUN (9 - 20 mg/dL) 9 13 27 H Creatinine (0.7 - 1.2 mg/dL) 0.6 L 0.7 1.0 Estimated GFR (>60 ml/min) > 60 > 60 > 60 BUN/Creatinine Ratio (7 - 25 %) 15.0 18.6 27.0 H Glucose (65 - 99 mg/dL) 92 226 H Hemoglobin A1c (4.2 - 5.8 %) 5.1 Serum Osmolality (285 - 295 MOSM/KG) 336 H Calcium (8.4 - 10.2 mg/dL) 8.7 Magnesium (1.6 - 2.3 mg/dL) 1.9 Total Bilirubin (0.2 - 1.3 mg/dL) 0.4 AST (17 - 59 U/L) 43 ALT (21 - 72 U/L) 38 Alkaline Phosphatase (< 127 U/L) 62 Troponin I (<0.11 ng/ml) < 0.01 < 0.01 Total Protein (6.3 - 8.2 g/dL) 6.5 Albumin (3.5 - 5.0 g/dL) 4.1 Globulin (1.9 - 4.2 gm/dL) 2.4 Albumin/Globulin Ratio (1.1 - 2.2 %) 1.7 Amylase (30 - 110 U/L) 62 Lipase (23 - 300 U/L) 122 TSH (0.270 - 4.200 uIU/mL) 2.050 Free T4 (0.78 - 2.44 ng/dL) 1.38 Cortisol AM Sample (4.46 - 22.7 ug/dL) 11.2 Toxicology Urine Opiates Screen (>2000 NG/ML) < 100 Methadone Screen (>300 NG/ML) 46 Barbiturate Screen (>200 NG/ML) < 60 Ur Phencyclidine Scrn (>25 NG/ML) < 6.00 Amphetamines Screen (>1000 NG/ML) < 100 U Benzodiazepines Scrn (>200 NG/ML) 357 H Urine Cocaine Screen (>300 NG/ML) < 50 Urine Cannabis Screen (>50 NG/ML) < 5.00 Serum Alcohol (<10 MG/DL) 227.0 Urines Urine Osmolality (300 - 1000 MOSM/KG) 540 08/17 1326 Hematology CBC w Diff NO MAN DIFF REQ WBC (4.8 - 10.8 /CUMM) 7.7 RBC (4.70 - 6.10 /CUMM) 4.44 L Hgb (14.0 - 18.0 G/DL) 15.3 Hct (42 - 52 %) 42.3 MCV (80.0 - 94.0 FL) 95.2 H MCH (27.0 - 31.0 PG) 34.5 H MCHC (33.0 - 37.0 G/DL) 36.3 RDW (11.5 - 14.5 %) 15.7 H Plt Count (130 - 400 /CUMM) 312 MPV (7.4 - 10.4 FL) 6.6 L Gran % (42.2 - 75.2 %) 77.4 H Lymphocytes % (20.5 - 51.1 %) 15.6 L Monocytes % (1.7 - 9.3 %) 6.4 Eosinophils % (0 - 5 %) 0.1 Basophils % (0.0 - 2.0 %) 0.5 Absolute Granulocytes (1.4 - 6.5 /CUMM) 5.9 Absolute Lymphocytes (1.2 - 3.4 /CUMM) 1.2 Absolute Monocytes (0.10 - 0.60 /CUMM) 0.5 Absolute Eosinophils (0.0 - 0.7 /CUMM) 0 Absolute Basophils (0.0 - 0.2 /CUMM) 0 Diffential Diagnosis: Alcohol use disorder, unspecified Substance-induced mood disorder R/O depressive d/o NOS Impression: As discussed with Dr. Hernandez today, escitalopram 10 mg PO daily can be held with minimal concern for discontinuation syndrome, which can present as flu-like symptoms. We are suggesting this be held due to hyponatremia and QTc prolongation. If these conditions do not resolve upon withholding the medication , then another cause should be sought. We appreciate the MD's diligence in noting the potential problem. The patient may benefit from an SSRI or similar for depression or anxiety, but reintroduction can be held until evaluation as an outpatient. If anxiety or depression were present today, it might be substance-induced, and an underlying disorder may not be discernable for weeks. The patient should avoid benzodiazepines after discharge, such as clonazepam, as they can be triggers for relapse, and can be fatal in alcohol relapse. The patient is interested in a referral to an IOP level of care, preferably near his home in [place]. He is not sure he needs the [facility] residential program, at this time. 08/19/2017 at 1600 CIWA: 8-2-16-6-5-0-7-5-4-1-to-3-3-10 VS 08/19/2017 at 1435:130/95, 88 HR, 97.9, 20 RR, 97% on room air, pain is 7. The patient has received 6.5 mg of lorazepam scheduled, +1 mg as needed, for a 24-hour total of 7.5 mg. Current order is for lorazepam 1 mg PO every 6 hours, which should be administered for 5 doses, after which scheduled lorazepam can be tapered to lorazepam 0.5 g by mouth every 6 hours for 5 doses, then stopped. If the patient's CIWA scores increase, or vital signs show instability, please reset the lorazepam taper at 6 mg/24 hours. Provisional Treatment Plan: 1. Please continue alcohol detox lorazepam taper, reducing daily scheduled total by no more than 20%. Hold for oversedation or respiratory depression. Please continue as needed lorazepam, per the EtOH detox protocol. There is a questionable history of seizure, which the patient now denies, so caution is recommended. 2. Please order vitamin B12 and folate. 3. Monitor sodium and QTC following discontinuation of escitalopram. 4. Please replete potassium. 5. Social work consult to assist with aftercare planning, which may include residential rehabilitation or IOP in [facility]. 6. We recommend that the patient not be discharged on clonazepam, and that discharge summary be sent to his physician, Dr. Prater. 7. Escitalopram can be held until evaluation as an outpatient at an [facility] or outpatient psychiatry. We will continue to follow along with you. Thank you for this consult
[2017-08-20] VITALS (7 sets, daily range): BP systolic 130–160; BP diastolic 84–104
--- NOTE | 2017-08-20 08:20 | PN- Housestaff ---
See Addendum Subjective Follow-up For: EtOH Subjective: No overnight events. Patient feels better this morning with a mild headache but no nausea, vomiting, abdominal pain, anxiety, or tremulousness. He thinks he will be ready to go home tomorrow. He wants to go home first and then go how much after that so That he can see his daughter. Review of Systems Constitutional: Reports: no symptoms. EENTM: Reports: no symptoms. Cardiovascular: Reports: no symptoms. Respiratory: Reports: no symptoms. Gastrointestinal: Reports: no symptoms. Genitourinary: Reports: no symptoms. Musculoskeletal: Reports: no symptoms. Skin: Reports: no symptoms. Neurological/Psychological: Reports: see HPI. Hematologic/Endocrine: Reports: no symptoms. Immunologic/Allergic: Reports: no symptoms. Objective Last 24 Hrs of Vital Signs/I&O Vital Signs Date Time Temp Pulse Resp B/P B/P Pulse O2 O2 Flow FiO2 Mean Ox Delivery Rate 08/20 0705 144/100 08/20 0505 78 160/104 08/20 0501 97.9 78 20 160/104 99 Room Air 08/20 0200 98.2 60 20 146/92 97 Room Air 08/19 2200 98.3 75 20 142/90 98 Room Air / 2000 98.1 84 18 140/90 05/02 1800 98.1 84 20 140/90 97 Room Air / 1600 97.9 88 20 130/95 05/02 1435 97.9 88 20 130/95 97 Room Air / 1200 98.5 80 18 130/75 05/ 1142 98.5 80 18 130/75 98 Room Air Intake & Output 08/20 1600 08/20 0800 08/20 0000 Intake Total 60 500 Output Total 350 250 Balance -290 250 Intake, Oral 60 500 Output, Urine 350 250 Patient 83.178 kg Weight Physical Exam General Appearance: Alert, Oriented X3, Cooperative, No Acute Distress Cardiovascular: Regular Rate, Normal S1, Normal S2 Lungs: Clear to Auscultation Abdomen: Normal Bowel Sounds, Soft, No Tenderness Extremities: No Edema, Normal Pulses, No Tenderness/Swelling Current Medications: Current Medications Sig/Breana Start time Last Medication Dose Route Stop Time Status Admin Acetaminophen 1,000 MG Q8P PRN 08/19 1445 AC 08/19 PO 1451 Acetaminophen 325 MG Q6 PRN 08/17 2215 DC 08/19 PO 0328 Amlodipine Besylate 5 MG DAILY 08/18 09 AC 08/20 PO 0505 Enoxaparin Sodium 40 MG DAILY 08/18 09 AC 08/19 SC 0819 Escitalopram Oxalate 10 MG DAILY 08/18 09 DC 08/19 PO 0819 Folic Acid 1 MG DAILY 08/18 0900 AC 08/19 PO 0819 Insulin Aspart 0 TIDAC 08/18 08 AC 08/18 SC 1207 Lidocaine 1 PAT DAILY 08/19 1906 AC 08/19 EXT 1941 Lorazepam 1 MG Q8 08/20 1400 AC PO Lorazepam 1 MG Q6 08/19 1200 DC 08/20 PO 0505 Lorazepam 1 MG Q1 PRN 08/18 0315 AC 08/19 IV 1215 Multivitamins 1 TAB DAILY 08/18 09 AC 08/19 PO 0819 Patient Medication 1 ED ONE ONE 08/19 1115 DC 08/19 Teaching ED 08/19 1116 1130 Potassium Chloride 40 MEQ ONCE ONE 08/19 1000 DC 08/19 PO 08/19 1001 1130 Thiamine HCl 100 MG DAILY 08/18 09 AC 08/19 PO 0819 Trimethobenzamide HCl 200 MG .STK-MED ONE 08/19 1120 DC IM 08/19 1121 Trimethobenzamide HCl 200 MG 4 TIMES/DAY PRN 08/17 2345 AC 08/19 IM 1128 Last 24 Hrs of Lab/Rajat Results Last 24 Hrs of Labs/Mics: Laboratory Tests 08/20/17 0720: Sodium Pending, Potassium Pending, Chloride Pending, Carbon Dioxide Pending, Anion Gap Pending, BUN Pending, Creatinine Pending, BUN/Creatinine Ratio Pending Assessment/Plan Assessment: Mr. Kauffman is a 61-year-old male with past medical history of depression, anxiety, hyperlipidemia, asthma in childhood, alcohol abuse (last detox 3-4 months ago at [facility]), and no history of alcohol withdrawal seizures who presented requesting alcohol detox. Problem List: 1. Alcohol detoxification 2. Hyponatremia #EtOH detox: Patient presented requesting detox. He has never been hospitalized previously for detoxification. He has also never had a withdrawal seizure. His CIWA score overnight ranged from 0-10. His LFTs are normal and he no longer has any abdominal pain. Abdominal ultrasound was normal. -Lorazepam 1 mg every 8 hours -Lorazepam 1 mg every 1 hour as needed CIWA protocol -Seizure precautions -Social work consult -Alcoholic vitamins #Hyponatremia: Patient presented with sodium 128, corrected to 131. Hyponatremia has been persistent. TSH, free T4, a.m. cortisol normal. May be secondary to SSRI. This is been stopped. -Psych consult for SSRI discontinuation -1000 mL fluid restriction -Continue to monitor #Chronic medical problems: -Continue other home medications DVT prophylaxis with enoxaparin Regular diet Full code Problem List: 1. Alcohol withdrawal Pain Ratin Pain Location: no Pain Goal: Remain pain free Pain Plan: see a/p Tomorrow's Labs & Rationales: bep
[2017-08-21 06:32] VITALS: BP 132/70
--- NOTE | 2017-08-21 07:59 | PN- Housestaff ---
See Addendum Subjective Follow-up For: EtOH Subjective: No overnight events. Patient slept very well last night has no nervousness, tremulousness, anxiety, chest pain, shortness of breath, abdominal pain, or other complaints. He is wondering about how much water he should be drinking given his sodium level. Review of Systems Constitutional: Reports: no symptoms. EENTM: Reports: no symptoms. Cardiovascular: Reports: no symptoms. Respiratory: Reports: no symptoms. Gastrointestinal: Reports: no symptoms. Genitourinary: Reports: no symptoms. Musculoskeletal: Reports: no symptoms. Skin: Reports: no symptoms. Neurological/Psychological: Reports: no symptoms. Hematologic/Endocrine: Reports: no symptoms. Immunologic/Allergic: Reports: no symptoms. Objective Last 24 Hrs of Vital Signs/I&O Vital Signs Date Time Temp Pulse Resp B/P B/P Pulse O2 O2 Flow FiO2 Mean Ox Delivery Rate 08/21 0532 98.5 74 20 132/70 97 Room Air 08/21 0000 98 Room Air 08/20 2239 99.2 98 18 146/84 96 Room Air 08/20 2220 99.2 98 18 146/84 08/20 1428 98.5 115 20 130/90 98 Room Air 08/20 0835 142/92 Intake & Output 08/21 0800 08/21 0000 08/20 1600 Intake Total 480 100 700 Output Total Balance 480 100 700 Intake, Oral 480 100 700 Number 0 0 1 Bowel Movements Patient 83.915 kg Weight Weight Bed scale Measurement Method Physical Exam General Appearance: Alert, Oriented X3, Cooperative, No Acute Distress Cardiovascular: Regular Rate, Normal S1, Normal S2 Lungs: Clear to Auscultation Abdomen: Normal Bowel Sounds, Soft, No Tenderness Extremities: No Edema, Normal Pulses, No Tenderness/Swelling Current Medications: Current Medications Sig/Breana Start time Last Medication Dose Route Stop Time Status Admin Acetaminophen 1,000 MG .STK-MED ONE 08/21 2115 DC PO 08/20 2116 Acetaminophen 1,000 MG Q8P PRN 08/19 1445 AC 08/20 PO 211 Amlodipine Besylate 10 MG DAILY 08/21 899 AC PO Amlodipine Besylate 5 MG DAILY 08/18 899 DC 08/20 PO 0505 Enoxaparin Sodium 40 MG DAILY 08/18 899 AC 08/20 SC 0825 Folic Acid 1 MG DAILY 08/18 899 AC 08/20 PO 0825 Insulin Aspart 0 TIDAC 08/18 0800 AC 08/18 SC 1207 Lidocaine 1 PAT DAILY 08/19 1906 AC 08/20 EXT 0825 Lorazepam 0.5 MG BID 08/21 2100 AC PO 08/28 205 Lorazepam 0.5 MG Q6 08/20 1800 DC 08/21 PO 08/27 1359 0541 Lorazepam 1 MG Q8 08/20 1400 DC 08/20 PO 1408 Lorazepam 1 MG Q6 08/19 1200 DC 08/20 PO 0505 Lorazepam 1 MG Q1 PRN 08/18 0315 AC 08/19 IV 1215 Multivitamins 1 TAB DAILY 08/18 0900 AC 08/20 PO 0825 Oxycodone/ 1 TAB ONCE ONE 08/20 191 DC 08/20 Acetaminophen PO 08/21 1915 191 Thiamine HCl 100 MG DAILY 08/18 0900 AC 08/20 PO 0826 Trimethobenzamide HCl 200 MG 4 TIMES/DAY PRN 08/17 2345 AC 08/19 IM 1128 Last 24 Hrs of Lab/Rajat Results Last 24 Hrs of Labs/Mics: Laboratory Tests 08/21/17 0720: Sodium Pending, Potassium Pending, Chloride Pending, Carbon Dioxide Pending, Anion Gap Pending, BUN Pending, Creatinine Pending, BUN/Creatinine Ratio Pending Assessment/Plan Assessment: Mr. Kauffman is a 61-year-old male with past medical history of depression, anxiety, hyperlipidemia, asthma in childhood, alcohol abuse (last detox 3-4 months ago at [facility]), and no history of alcohol withdrawal seizures who presented requesting alcohol detox. Problem List: 1. Alcohol detoxification 2. Hyponatremia #EtOH detox: Patient presented requesting detox. He has never been hospitalized previously for detoxification. He has also never had a withdrawal seizure. His CIWA score overnight ranged from 0-2. His LFTs are normal and he no longer has any abdominal pain. Abdominal ultrasound was normal. -Lorazepam 0.5 BID, then stop -Lorazepam 1 mg every 1 hour as needed CIWA protocol -Seizure precautions -Social work consult -Alcoholic vitamins #Hyponatremia: Patient presented with sodium 128, corrected to 131. Hyponatremia has been persistent. TSH, free T4, a.m. cortisol normal. May be secondary to SSRI. This is been stopped. -Appreciate psych recommendations -800 mL fluid restriction -Continue to monitor #Chronic medical problems: -Continue other home medications DVT prophylaxis with enoxaparin Regular diet Full code Problem List: 1. Alcohol withdrawal Pain Ratin Pain Location: no Pain Goal: Remain pain free Pain Plan: see a/p Tomorrow's Labs & Rationales: bep
[2017-08-21] MEDS ORDERED: ONE DAILY MULT1 EAC2 PO (11:21)
[2017-08-21] MEDS ORDERED: NORVASC10 M1 PO (11:21)
--- NOTE | 2017-08-21 11:23 | Patient Discharge Instructions ---
Discharge Instructions General Discharge Information You were seen/treated for: Alcohol withdrawal, hyponatremia Watch for these problems: Fever, chest pain, shortness of breath Special Instructions: Please take all medications as directed. Please follow-up with primary care and psychiatry. Diet Continue normal diet: Yes Activity Full Activity/No Limits: Yes Acute Coronary Syndrome Inclusion Criteria At DC or during hospital stay patient has or had the following: ACS DIAGNOSIS No Discharge Core Measures Meds if any: Prescribed or Continued at Discharge Meds if any: NOT Prescribed or Continued at Discharge Congestive Heart Failure Inclusion Criteria At DC or during hospital stay patient has or had the following: CHF DIAGNOSIS No Discharge Core Measures Meds if any: Prescribed or Continued at Discharge Meds if any: NOT Prescribed or Continued at Discharge Cerebrovascular accident Inclusion Criteria At DC or during hospital stay patient has or had the following: CVA/TIA Diagnosis No Discharge Core Measures Meds if any: Prescribed or Continued at Discharge Meds if any: NOT Prescribed or Continued at Discharge Venous thromboembolism Inclusion Criteria VTE Diagnosis No VTE Type NONE VTE Confirmed by (Test) NONE Discharge Core Measures - Per Current guidelines, there needs to be overlap - treatment for the first 5 days of Warfarin therapy. - If discharged on Warfarin prior to 5 days of - overlap therapy, the patient will need to be - assessed for post discharge needs including - *Post discharge parental anticoagulation - *Warfarin and/or parental anticoagulation education - *Follow up date to check INR post discharge At least 5 days overlap therapy as Inpatient No Meds if any: Prescribed or Continued at Discharge Note: Overlap Therapy is Warfarin and Anticoagulant Meds if any: NOT Prescribed or Continued at Discharge
--- NOTE | 2017-08-21 11:54 | Incdntl Nt Psy ---
Incidental Note Notation: The patient had indicated that he would like to come to [facility]. an appointment was obtained, but when told of the probable schedule, he declined the appointment. He would like to discuss other possibilities with social work for aftercare. The patient is alert and oriented to person, place, day, year, off by one month. He denies AH, VH and presents no tyron delusions. He denies SI or HI. Insight and judgement are intact.
[2017-08-21 14:32] VITALS: BP 130/90
[2017-08-21 22:48] VITALS: BP 150/90
[2017-08-22 06:37] VITALS: BP 160/100
[2017-08-22 07:55] VITALS: BP 152/90
--- NOTE | 2017-08-22 09:44 | PN- Att Addend ---
Attending Addendum Attending Brief Note Pt seen and examined. He feels well and is eager to leave. He says he'll go home to his daughter and will follow-up with AA. He was seen by psych and social work and given information about the IOP but he is not sure yet if he follow-up with IOP. On exam his pressure is 140/90, pulse is 80, breathing at 16-18 and afebrile. Lungs are clear to auscultation bilaterally, heart is S1-S2 regular, abdomen is soft nontender and he has no edema. He is awake alert oriented with no asterixis. He is a 61-year-old with a past medical history of hypertension, depression on Lexapro in the past was here with acute alcohol withdrawal. He finished an alcohol detox regimen with an Ativan taper. His medications have been changed as per the primary team for probable SIADH and he's been given an outpatient referral to the [facility] at [address] [place] [address] in [place]. I stressed importance of following up with this clinic both for his sodium and his blood pressure and the alcohol use. He is stable to leave with outpatient follow-up.
[2017-08-22] MEDS ORDERED: NORVASC10 M1 PO (09:47)
--- NOTE | 2017-08-22 10:16 | PN- Housestaff ---
Subjective Follow-up For: Alcohol withdrawal Subjective: No overnight events. Patient remained afebrile while pacing examined this morning. He denied any chest pain, short of breath, nausea, vomiting, chills, fever, abdominal pain dysuria. He is hemodynamically stable and being discharged today. Patient is waiting for the he ride. Patient was instructed to follow primary care physician and his psychiatrist as outpatient. Review of Systems Constitutional: Denies: chills, fever, weakness. EENTM: Reports: no symptoms. Cardiovascular: Denies: chest pain, orthopena, palpitations. Respiratory: Denies: cough, orthopnea, short of breath. Gastrointestinal: Denies: abdominal pain, constipation, diarrhea, melena, nausea. Genitourinary: Reports: no symptoms. Neurological/Psychological: Reports: no symptoms. Objective Last 24 Hrs of Vital Signs/I&O Vital Signs Date Time Temp Pulse Resp B/P B/P Pulse O2 O2 Flow FiO2 Mean Ox Delivery Rate 08/22 0755 152/90 08/22 0637 97.6 90 16 160/100 99 Room Air 08/21 2248 98.1 78 20 150/90 95 Room Air 08/21 1432 97.9 91 20 130/90 97 Room Air 08/21 1048 98.5 74 20 132/70 Intake & Output 08/22 1600 / 0800 05 0000 Intake Total 50 50 Output Total Balance 50 50 Intake, Oral 50 50 Physical Exam General Appearance: Alert, Oriented X3, Cooperative Skin Temp/Moisture Exam: Warm/Dry Sepsis Skin Exam (color): Normal for Ethnicity HEENT: Atraumatic, PERRLA, EOMI Neck: Supple Cardiovascular: Normal S1, Normal S2 Lungs: Clear to Auscultation Abdomen: Normal Bowel Sounds, Soft Neurological: Normal Speech, Strength at 5/5 X4 Ext, Normal Tone Extremities: No Edema Assessment/Plan Assessment: 61-year-old male with past medical history of depression, anxiety, hyperlipidemia, asthma in childhood, alcohol abuse (last detox 3-4 months ago at [facility]), and no history of alcohol withdrawal seizures who presented requesting alcohol detox. He was seen for following problems: Alcohol withdrawal: -Patient completed his alcohol detox. -His hematocrit is stable and being discharged today. -No overnight Ativan dose other than scheduled 1. -She was instructed to follow his primary care physician and psychiatrist as outpatient. -Patient will follow outpatient [facility] for alcohol dependency but he is not sure yet if he follow-up with [facility]. Hyponatremia: -Possibly hypovolemic hyponatremia -His sodium level had gradually improved. -Yesterday his sodium level was 133 History of hypertension and hyperlipidemia: -We continued to his amlodipine, lisinopril and atorvastatin DVT prophylaxis: Mechanical and s/c heparin CODE STATUS: Full code Problem List: 1. Alcohol withdrawal Pain Ratin Pain Location: none Pain Goal: Remain pain free Pain Plan: pain pathway Tomorrow's Labs & Rationales: none
--- NOTE | 2017-08-23 11:30 | Discharge Summary ---
Visit Information Visit Dates Admission Date: 08/17/17 Discharge Date: 08/22/17 Hospital Course Course Attending Physician: Marybeth Christian MD Primary Care Physician: Unknown Hospital Course: Mr. Kauffman is a 61-year-old male with past medical history of depression, anxiety, hyperlipidemia, asthma in childhood, alcohol abuse (last detox 3-4 months ago at [facility]), and no history of alcohol withdrawal seizures who presented requesting alcohol detox. He was admitted to general medicine and treated for the following problems: 1. Alcohol detoxification 2. Hyponatremia #EtOH detox: Patient presented requesting detox. He has never been hospitalized previously for detoxification. He has also never had a withdrawal seizure. He was started on standing lorazepam and see what protocol and this was subsequently tapered. His LFTs are normal and he no longer has any abdominal pain. Abdominal ultrasound was normal. Social work and psychiatry were consulted and he was maintained on vitamins as well. He should follow-up with primary care and psychiatry outpatient. He will also be going to [facility]. #Hyponatremia: Patient presented with sodium 128, corrected to 131. Hyponatremia has been persistent. TSH, free T4, a.m. cortisol normal. May be secondary to SSRI. This is been stopped. His sodium subsequently normalized. He can follow up with psychiatry as an outpatient. #Chronic medical problems: Patient's other home medications were continued. Allergies: Coded Allergies: No Known Allergies (08/17/17) Disposition Summary Disposition Principal Diagnosis: 1. Alcohol detoxification Additional Diagnosis: 2. Hyponatremia Discharge Disposition: home or self care Discharge Instructions General Discharge Information Code Status: Full Code Patient's Diet: Regular diet Patient's Activity: As tolerated Follow-Up Instructions/Appts: Please take all medications as directed. Please follow-up with primary care and psychiatry. Medications at Discharge Discharge Medications: Stop taking the following medications: Escitalopram Oxalate (Lexapro) 10 MG TABLET ORAL DAILY Continue taking these medications: Atorvastatin Calcium (Lipitor) (Unknown Strength) TABLET Unknown Dose ORAL DAILY Instructions: . Start taking the following new medications: Amlodipine Besylate (Norvasc) 10 MG TABLET 10 Milligram ORAL DAILY Qty = 30 No Refills Instructions: . Multivitamin (One Daily Multivitamin) 1 EACH TABLET 1 Tablet ORAL DAILY Qty = 30 No Refills Copies To: Beverly MOSLEY,Beverly; Jose Ohara APRN, MD,Kendrick Attending MD Review Statement Other Findings: Discharging attending is Dr. Yolie Davila
== END 2017-08-22 11:12 | DRG 897 ==
LOC: ERH 13:09 → ERHI 21:51 → 2NA 21:51 → ENRESERV 22:24 → ENTRNSPT 22:37 → EDTRNSPT 22:38 → EDTRNSPTSTS 22:38 → 2NA 22:50 → CMPTRNSPT 22:52 → 2NA 08-18 09:55 → ENPENDDIS 08-22 09:50 → 2NA 08-22 11:12
PROVIDERS: Emergency Medicine
DX: F10.229 Alcohol dependence with intoxication, unspecified (principal); E87.1 Hypo-osmolality and hyponatremia; E78.5 Hyperlipidemia, unspecified; I10 Essential (primary) hypertension; J45.909 Unspecified asthma, uncomplicated; R73.9 Hyperglycemia, unspecified; F32.9 Major depressive disorder, single episode, unspecified; R07.9 Chest pain, unspecified; R10.31 Right lower quadrant pain; F41.9 Anxiety disorder, unspecified; F17.200 Nicotine dependence, unspecified, uncomplicated
CPT/HCPCS: 2NAP; 36592; 80307; 82436; 87040; 87070; 93005; 93010; 96374; 96375; 99233; G0480; J1650; J2405; J3250; J3490; J7060